=== PATIENT | female | born 1940 | race Caucasian/White ===

== ENCOUNTER 2018-01-30 00:53 | Inpatient (IN) ==
[2018-01-30] MEDS ORDERED: Piperacil/Tazo 3.375 GM Premix 50 ML IV.SIG ONE (01:27)
[2018-01-30] MEDS ORDERED: Azithromycin Inj 500 MG in Sodium Chlor 0.9% Inj 250 ML IV.SIG ONE (01:27)
[2018-01-30 01:35] LABS: Baso % (Auto) 0.3 % (0.0-2.0); Eos % (Auto) 0.2 % (0.0-4.0); Hematocrit 45.4 % (35.0-46.0); Hemoglobin 15.4 gm/dL (11.6-15.3); Lymph # (Auto) 0.7 th/mm3 (1.0-4.8); Lymph % (Auto) 6.6 % (9.0-44.0); Mean Corpuscular HGB Conc 33.9 % (32.0-36.0); Mean Corpuscular Hemoglobin 33.1 pg (27.0-34.0); Mean Corpuscular Volume 97.5 fL (80.0-100.0); Mean Platelet Volume 7.2 fL (7.0-11.0); Mono # (Auto) 0.9 th/mm3 (0.0-0.9); Mono % (Auto) 8.5 % (0.0-8.0); Neut # (Auto) 9.1 th/mm3 (1.8-7.7); Neut % (Auto) 84.4 % (16.0-70.0); Platelet Count 420 th/mm3 (150-450); Red Blood Count 4.65 mil/mm3 (4.00-5.30); Red Cell Distribution Width 12.7 % (11.6-17.2); White Blood Count 10.8 th/mm3 (4.0-11.0)
--- NOTE | 2018-01-30 01:42 | XR ---
EXAM DATE: 01/30/2018 1:30 AM EDT AGE/SEX: 77 years / Female INDICATIONS: Cough. CLINICAL DATA: This is the patient's initial encounter. Patient reports that signs and symptoms have been present for 1 day and indicates a pain score of 0/10. MEDICAL/SURGICAL HISTORY: Non-responsive. Non-responsive. COMPARISON: No prior exams available for comparison. FINDINGS: Right lower lobe consolidation. Left lung is clear. Cardiomegaly. Osseous structures are intact. CONCLUSION: Right lower lobe consolidation. Electronically signed by: Mychal Strauss MD 01/30/2018 1:41 AM EDT
[2018-01-30 01:49] LABS: Activated Partial Thrombo Time 29.8 sec (24.3-30.1); Prothrombin Time 10.4 sec (9.8-11.6)
[2018-01-30 01:50] LABS: D-Dimer 0.72 mg/L FEU (0.00-0.50)
--- NOTE | 2018-01-30 01:51 | ED ---
HPI General Chief complaint: Shortness of Breath/Dyspnea Stated complaint: cough Time Seen by Provider: 01/30/18 01:12 Source: patient and family Limitations: altered mental status (increased confusion, memory problems according to her daughter at the bedside.) History of Present Illness HPI narrative: The patient is a 77 year old female who presents to the [facility] emergency department with a history of cough, chest congestion, increased confusion that began approximately a week ago. The patient reports that her cough has become increasingly productive. She reports that it is productive of a green thick sputum. She denies having any known fevers. She denies having any shortness of breath, however on arrival she is noted to be tachycardic, tachypneic, with an O2 saturation of 83% on room air out in triage. She denies having any chest pain other than with coughing. She denies having any abdominal pain. On review of systems otherwise, the patient denies having any neck pain, vomiting, diarrhea, urinary symptoms, or other neurologic symptoms. Her daughter at the bedside reports that she has problems with her memory on a regular basis, however over the last couple of days she has been increasingly confused. Related Data Home Medications Medication Instructions Recorded Confirmed chlordiazepoxide HCl 10 mg PO BID 01/30/18 01/30/18 levothyroxine 75 mcg PO DAILY 01/30/18 01/30/18 Allergies Allergy/AdvReac Type Severity Reaction Status Date / Time cephalexin Allergy Severe Hives Unverified 01/30/18 02:04 ciprofloxacin Allergy Severe HOARSNESS Unverified 01/30/18 02:04 diphenhydramine Allergy Severe Burning Unverified 01/30/18 02:04 phenobarbital Allergy Severe Lethargy Unverified 01/30/18 02:04 Sulfa (Sulfonamide Allergy Severe Itching Unverified 01/30/18 02:04 Antibiotics) ANTIHISTAMINES Allergy Severe Hives Uncoded 01/30/18 02:04 Review of Systems ROS Unobtainable All other systems reviewed negative except as stated in HPI PMFSH Medical History Medical History Anxiety (Acute) History of hysterectomy (Acute) Hypothyroidism (Acute) Memory changes (Acute) Patient denies medical problems (Acute) Recurrent pneumonia (Acute) Family History Family History Other Family history unknown Social History Social History Substance History: No History of Abuse Smoking Status: Former smoker Smoking End Date: Quit smoking approximately 15-20 years ago. How Often Do You Have a Drink Containing Alcohol: Never Recent Travel in [facility] within the Last 8 Weeks: No Recent Out of Country Travel within the Last 8 Weeks: No Immunization History Tetanus Immunization: <5 Years Hx Influenza Vaccine This Season: No Exam Const General: cooperative, no acute distress and well developed Nutritional Appearance: well nourished Orientation: alert, awake and oriented x3 HENMT Head: normocephalic and atraumatic Nose: no nasal discharge and no epistaxis Mouth: moist mucous membranes Eyes Sclera: normal sclerae Pupils: PERRL Neck Neck: trachea midline and no JVD Resp Effort & Inspection: no use of accessory muscles Auscultation: rhonchi (Scattered rhonchi that clear with coughing bilaterally.) , no wheezes and other (Decreased breath sounds in bilateral lung bases worse on the right compared to the left, a frequent productive sounding cough on examination.) Cardio Rate: tachycardic (No pulse deficits to the extremities on simultaneous auscultation and palpation of her radial artery.) Rhythm: regular rhythm Heart Sounds: no murmurs GI Inspection: non-distended Palpation: soft, no hepatosplenomegaly and nontender Skin General: dry skin (warm) Neuro General: alert and awake Cranial Nerves: other Speech: speech normal Motor: no movement abnormalities noted Extrem General: normal to inspection, no clubbing, no cyanosis and no edema Psych Mood: congruent mood Affect: normal affect Judgment: judgment good Course Reevaluation(s) Reevaluation #1: The patient on reevaluation continued to saturate in the mid 90s on supplemental oxygen. The patient reported feeling improved. The workup was continued. The patient was instructed regarding the plan for admission. She was agreeable with this plan. Consultations Consultation #1: The patient's case including history, pertinent physical examination findings, and laboratory studies were discussed with Dr. Veliz. It was agreed that the patient would be admitted to the hospitalist service. Initial Documented Vital Signs Temperature 98.4 F 01/30/18 01:04 Pulse Rate 124 H 01/30/18 01:04 Respiratory Rate 42 H 01/30/18 01:04 Blood Pressure 132/79 01/30/18 01:04 Pulse Oximetry 83 L 01/30/18 01:04 Last Documented Vital Signs Temperature 98.4 F 01/30/18 01:04 Pulse Rate 100 H 01/30/18 04:09 Respiratory Rate 23 01/30/18 04:09 Blood Pressure 157/88 H 01/30/18 04:09 Pulse Oximetry 95 01/30/18 04:09 Medical Decision Making MDM Narrative Medical decision making narrative: During the course of the patient's emergency department visit, the patient's history, examination, and differential diagnosis were reviewed with the patient. The patient was placed on a aircraft sheet metal mechanic with oximetry and frequent blood pressure monitoring. The patient had IV access obtained and blood work sent for analysis. The diagnostic evaluation was started regarding the patient's hypoxemia, productive cough, and tachycardia. Blood cultures 2 were drawn, lactic acid was sent for analysis. The patient was initially provided Zosyn and Zithromax for broad-spectrum antibiotic coverage for suspected pneumonia, the patient was provided a DuoNeb 1. Diagnostic testing revealed a normal white count of 10.8, however a neutrophil predominance of 84.4, platelets 420, hemoglobin 15.4. PT PTT unremarkable, d- dimer was noted to be elevated at 0.72, therefore a CTA to rule out PE was ordered. Chemistries remarkable for a troponin I of less than 0.02, lactic acid within normal limits at 0.9, sodium 134, glucose 139, chloride 91, CO2 36.4 , albumin 2.8, magnesium 2.3. Chest x-ray revealed a right lower lobe infiltrate consistent with pneumonia, CTA to rule out PE showed no evidence of pulmonary embolism, scattered pulmonary infiltrates with dense consolidation in the right lower lobe, evidence of emphysema. The patient's results were discussed with the patient, including the plan of care. I explained that further testing and/ or monitoring is indicated based on the patient's history, examination, and/ or laboratory findings. Therefore, I recommended admission for additional evaluation. The patient expressed understanding and was agreeable with this plan. The patient was admitted to the hospital in guarded condition and sent to a bed under the care of the [facility] service. Differential Diagnosis Differential Diagnosis: Pneumonia, versus congestive heart failure, versus acute coronary syndrome, versus pulmonary embolism Medical Records Medical records reviewed: Yes I reviewed the patient's medical records. Lab Data Lab results reviewed: Yes I reviewed the patient's lab results. Result diagrams: 01/30/18 01:15 01/30/18 01:15 Lab Results 01/30/18 01/30/18 01/30/18 Range/Units 01:15 01:15 01:15 WBC 10.8 (4.0-11.0) th/mm3 RBC 4.65 (4.00-5.30) mil/mm3 Hgb 15.4 H (11.6-15.3) gm/dL Hct 45.4 (35.0-46.0) % MCV 97.5 (80.0-100.0) fL MCH 33.1 (27.0-34.0) pg MCHC 33.9 (32.0-36.0) % RDW 12.7 (11.6-17.2) % Plt Count 420 (150-450) th/mm3 MPV 7.2 (7.0-11.0) fL Neut % (Auto) 84.4 H (16.0-70.0) % Lymph % (Auto) 6.6 L (9.0-44.0) % [place] % (Auto) 8.5 H (0.0-8.0) % Eos % (Auto) 0.2 (0.0-4.0) % Baso % (Auto) 0.3 (0.0-2.0) % Neut # (Auto) 9.1 H (1.8-7.7) th/mm3 Lymph # (Auto) 0.7 L (1.0-4.8) th/mm3 [place] # (Auto) 0.9 (0.0-0.9) th/mm3 Eos # (Auto) 0.0 (0.0-0.4) th/mm3 Baso # (Auto) 0.0 (0.0-0.2) th/mm3 WBC Differential . Differential Comment Auto diff final PT 10.4 (9.8-11.6) sec INR 1.0 Ratio APTT 29.8 (24.3-30.1) sec D-Dimer Quant (PE/DVT) 0.72 H (0.00-0.50) mg/L FEU Sodium 134 L (136-145) meq/L Potassium 3.7 (3.5-5.1) meq/L Chloride 91 L (98-107) meq/L Carbon Dioxide 36.4 H (21.0-32.0) meq/L Anion Gap 7 (5-15) meq/L BUN 11 (7-18) mg/dL Creatinine 0.62 (0.50-1.00) mg/dL Estimated GFR Greater than 89 (>89) mL/min Random Glucose 139 H (74-106) mg/dL Lactic Acid (0.4-2.0) mmol/L Calcium 9.1 (8.5-10.1) mg/dL Magnesium 2.3 (1.5-2.5) mg/dL Total Bilirubin 0.4 (0.2-1.0) mg/dL AST 27 (15-37) U/L ALT 30 (10-53) U/L Alkaline Phosphatase 111 (45-117) U/L Total Creatine Kinase 80 (26-192) U/L Troponin I Less than 0.02 L (0.02-0.05) ng/mL B-Natriuretic Peptide (0-100) pg/mL Total Protein 7.6 (6.4-8.2) g/dL Albumin 2.8 L (3.4-5.0) g/dL 01/30/18 01/30/18 Range/Units 01:15 01:45 WBC (4.0-11.0) th/mm3 RBC (4.00-5.30) mil/mm3 Hgb (11.6-15.3) gm/dL Hct (35.0-46.0) % MCV (80.0-100.0) fL MCH (27.0-34.0) pg MCHC (32.0-36.0) % RDW (11.6-17.2) % Plt Count (150-450) th/mm3 MPV (7.0-11.0) fL Neut % (Auto) (16.0-70.0) % Lymph % (Auto) (9.0-44.0) % [place] % (Auto) (0.0-8.0) % Eos % (Auto) (0.0-4.0) % Baso % (Auto) (0.0-2.0) % Neut # (Auto) (1.8-7.7) th/mm3 Lymph # (Auto) (1.0-4.8) th/mm3 [place] # (Auto) (0.0-0.9) th/mm3 Eos # (Auto) (0.0-0.4) th/mm3 Baso # (Auto) (0.0-0.2) th/mm3 WBC Differential Differential Comment PT (9.8-11.6) sec INR Ratio APTT (24.3-30.1) sec D-Dimer Quant (PE/DVT) (0.00-0.50) mg/L FEU Sodium (136-145) meq/L Potassium (3.5-5.1) meq/L Chloride (98-107) meq/L Carbon Dioxide (21.0-32.0) meq/L Anion Gap (5-15) meq/L BUN (7-18) mg/dL Creatinine (0.50-1.00) mg/dL Estimated GFR (>89) mL/min Random Glucose (74-106) mg/dL Lactic Acid 0.9 (0.4-2.0) mmol/L Calcium (8.5-10.1) mg/dL Magnesium (1.5-2.5) mg/dL Total Bilirubin (0.2-1.0) mg/dL AST (15-37) U/L ALT (10-53) U/L Alkaline Phosphatase (45-117) U/L Total Creatine Kinase (26-192) U/L Troponin I (0.02-0.05) ng/mL B-Natriuretic Peptide 15 (0-100) pg/mL Total Protein (6.4-8.2) g/dL Albumin (3.4-5.0) g/dL Imaging Data Radiologist's impression: Chest X-Ray 01/30/18 01:14 CONCLUSION: Right lower lobe consolidation. Chest CTA 01/30/18 02:45 CONCLUSION: 1. No evidence for pulmonary embolism. 2. Scattered pulmonary infiltrates with dense consolidation in the right lower lobe. 3. Emphysema. ECG Data Attestation: I personally reviewed and interpreted this ECG as follows: Interpretation: The patient had an EKG done on arrival. The patient's EKG shows a sinus tachycardia rate of 111, QRS duration 93 ms, QTC 404 ms. Right ventricular hypertrophy is noted, an incomplete right bundle branch block is noted, nonspecific ST-T wave abnormalities are noted. T waves are inverted in V1, V2 No acute ST segment elevation is noted. Discharge Plan Discharge Disposition Patient Disposition: 30 Still Patient Discharge Details Diagnosis: Community acquired pneumonia, Hypoxemia Physicians Team ED Provider: Charissa Diaz Primary Care Provider: Alberto Warner Attending Provider: Ehsan Solomon Discharge Interventions Interventions: Vital Signs Last Done: 01/30/18 04:09 Status ED Status: Admitted Patient
[2018-01-30 02:00] LABS: Alanine Aminotransferase 30 U/L (10-53); Albumin 2.8 g/dL (3.4-5.0); Alkaline Phosphatase 111 U/L (45-117); Anion Gap 7 meq/L (5-15); Aspartate Aminotransferase 27 U/L (15-37); Blood Urea Nitrogen 11 mg/dL (7-18); Calcium 9.1 mg/dL (8.5-10.1); Carbon Dioxide 36.4 meq/L (21.0-32.0); Chloride 91 meq/L (98-107); Glomerular Filtration Rate Greater Than 89 mL/min (>89); Glucose,Random 139 mg/dL (74-106); Magnesium 2.3 mg/dL (1.5-2.5); Potassium 3.7 meq/L (3.5-5.1); Sodium 134 meq/L (136-145); Total Protein 7.6 g/dL (6.4-8.2)
[2018-01-30 02:01] LABS: Creatine Kinase 80 U/L (26-192)
--- NOTE | 2018-01-30 03:22 | CT ---
EXAM DATE: 01/30/2018 3:14 AM EDT AGE/SEX: 77 years / Female INDICATIONS: Shortness of breath with elevated D-Dimer. CLINICAL DATA: This is the patient's initial encounter. Patient reports that signs and symptoms have been present for 3 days and indicates a pain score of 0/10. MEDICAL/SURGICAL HISTORY: None. Hysterectomy. RADIATION DOSE: 9.82 CTDI (mGy) COMPARISON: [facility], CHEST 1V SINGLE AP, 01/30/2018. . TECHNIQUE: Volumetric scanning was performed using a multi-row detector CT scanner during bolus infu jaswinder of 70 ml Omnipaque 350 (iohexol) nonionic water-soluble contrast as a single exam dose. The laurel a was post processed with a variety of visualization algorithms including full volume maximum intensi ty projection and sliding thin slab reformation. Using automated exposure control and adjustment of the mA and/or kV according to patient size, radiation dose was kept as low as reasonably achievable t o obtain optimal diagnostic quality images. DICOM format image data is available electronically for review and comparison. FINDINGS: There is mild parenchymal consolidation in the lingula identified. There are severe emphysematous nay nges noted. There is mild bronchiectasis and peripheral tree-in-bud infiltrate in the right upper lob e with peribronchial thickening. There is bronchiectasis, peribronchial thickening, dense consolidati on in the right lower lobe corresponding to the plain radiographic findings. There are areas of mucou s plugging seen. There is no evidence for pulmonary embolism. Review of bone windows demonstrate a mo derate T12 compression fracture, which is nonacute. CONCLUSION: 1. No evidence for pulmonary embolism. 2. Scattered pulmonary infiltrates with dense consolidation in the right lower lobe. 3. Emphysema. Electronically signed by: Mychal Strauss MD 01/30/2018 3:21 AM EDT
[2018-01-30] MEDS ORDERED: Acetaminophen 325 MG Tablet PO PRN (03:33)
[2018-01-30] MEDS ORDERED: Temazepam 15 MG Capsule PO PRN (03:33)
[2018-01-30] MEDS ORDERED: Bisacodyl 10 MG Supp RECTAL PRN (03:33)
--- NOTE | 2018-01-30 03:39 | P.HP ---
History of Present Illness Service: [facility] Primary Care Physician: Alberto Warner MD History of Present Illness: 77-year-old female with a past medical history significant for dementia and hypothyroidism presents to the emergency department for evaluation of active cough, increased sputum production and confusion that began approximately 1 week ago. The patient is an extremely poor historian and her daughter who is bedside provides most of the history. She reports that the patient has had a cough productive of thick green sputum. She does not know if patient had any fevers and the patient denies any fevers or shortness of breath. The patient was hypoxic on arrival to the emergency department however, with an oxygen saturation of 83% on room air. The patient denies any chest pain. No abdominal pain. No nausea/vomiting/diarrhea. No lateralizing signs/symptoms. Inpatient Certification: I certify that the inpatient services were ordered in accordance with Medicare regulations governing the order. This includes certification that hospital inpatient services are reasonable and necessary and in the case of services not specified as inpatient-only under 42 CFR 419.22(n), that they are appropriately provided as inpatient services in accordance to with the 2-midnight benchmark under 43 CFR 412.3(e) Review of Systems All other systems reviewed negative except as stated in HPI PMFSH - History History Provided By: Patient - Medical History Medical History: Medical History (Last Updated 01/30/18 @ 02:48 by Charissa Diaz MD) Anxiety History of hysterectomy Hypothyroidism Memory changes Patient denies medical problems Recurrent pneumonia - Family History Family History: Family History (Last Updated 01/30/18 @ 03:29 by Edna Veliz MD) Other Family history unknown - Tobacco History Smoking Status: Former smoker Smoking End Date: Quit smoking approximately 15-20 years ago. - Alcohol History How Often Do You Have a Drink Containing Alcohol: Never - Substance Use History Substance History: No History of Abuse - Travel History Recent Travel in the [place] Within the Last 8 Weeks: No Recent Travel Out of the Country Within the Last 8 Weeks: No - Immunization History Tetanus Immunization: <5 Years Hx Influenza Vaccine This Season: No Medications and Allergies Active Medications: Active Medications Sodium Chloride (Ns Flush) 2 ml IV.FLUSH UNSCH PRN PRN Reason: FLUSH AFTER USING IV ACCESS Allergies Allergy/AdvReac Type Severity Reaction Status Date / Time cephalexin Allergy Severe Hives Unverified 01/30/18 02:04 ciprofloxacin Allergy Severe HOARSNESS Unverified 01/30/18 02:04 diphenhydramine Allergy Severe Burning Unverified 01/30/18 02:04 phenobarbital Allergy Severe Lethargy Unverified 01/30/18 02:04 Sulfa (Sulfonamide Allergy Severe Itching Unverified 01/30/18 02:04 Antibiotics) ANTIHISTAMINES Allergy Severe Hives Uncoded 01/30/18 02:04 Home Medications Medication Instructions Recorded Confirmed Type chlordiazepoxide HCl 10 mg PO BID 01/30/18 01/30/18 History levothyroxine 75 mcg PO DAILY 01/30/18 01/30/18 History Exam Vital signs: Vital Signs 01/30/18 01:04 01/30/18 01:13 01/30/18 01:14 Temperature 98.4 F Pulse Rate 124 H 111 H Respiratory Rate 42 H 42 H Blood Pressure 132/79 133/96 H Pulse Oximetry 83 L 95 97 01/30/18 01:16 01/30/18 01:36 01/30/18 02:00 Temperature Pulse Rate 111 H 98 H Respiratory Rate 28 H 29 H Blood Pressure 133/96 H Pulse Oximetry 97 97 Intake & Output 01/29/18 01/29/18 01/30/18 06:59 18:59 06:59 Weight 56.699 kg Narrative: Gen.: No acute distress Head: Normocephalic. Atraumatic. EENT: Pupils equal round and reactive to light. Nose without drainage. Airway intact. Throat without injection. Cardiovascular: Regular rate and rhythm. No murmurs, rubs or gallops. Respiratory: Lungs clear to auscultation bilaterally. No wheezes. Scattered rhonchi. Abdomen: Soft, nontender, nondistended. No peritoneal signs. Musculoskeletal: No gross deformities. No edema. Skin: No obvious rashes or erythema. Neuro: Sensory and motor grossly intact. Cranial nerves II through XII grossly intact. Results - Labs CBC & Chem 7: 01/30/18 01:15 01/30/18 01:15 Labs: Laboratory Results - last 24 hr 01/30/18 01/30/18 01/30/18 01:15 01:15 01:15 WBC 10.8 RBC 4.65 Hgb 15.4 H Hct 45.4 MCV 97.5 MCH 33.1 MCHC 33.9 RDW 12.7 Plt Count 420 MPV 7.2 Neut % (Auto) 84.4 H Lymph % (Auto) 6.6 L [place] % (Auto) 8.5 H Eos % (Auto) 0.2 Baso % (Auto) 0.3 Neut # (Auto) 9.1 H Lymph # (Auto) 0.7 L [place] # (Auto) 0.9 Eos # (Auto) 0.0 Baso # (Auto) 0.0 WBC Differential . Differential Comment Auto diff final PT 10.4 INR 1.0 APTT 29.8 D-Dimer Quant (PE/DVT) 0.72 H Sodium 134 L Potassium 3.7 Chloride 91 L Carbon Dioxide 36.4 H Anion Gap 7 BUN 11 Creatinine 0.62 Estimated GFR Greater than 89 Random Glucose 139 H Lactic Acid Calcium 9.1 Magnesium 2.3 Total Bilirubin 0.4 AST 27 ALT 30 Alkaline Phosphatase 111 Total Creatine Kinase 80 Troponin I Less than 0.02 L B-Natriuretic Peptide Total Protein 7.6 Albumin 2.8 L 01/30/18 01/30/18 01:15 01:45 WBC RBC Hgb Hct MCV MCH MCHC RDW Plt Count MPV Neut % (Auto) Lymph % (Auto) [place] % (Auto) Eos % (Auto) Baso % (Auto) Neut # (Auto) Lymph # (Auto) [place] # (Auto) Eos # (Auto) Baso # (Auto) WBC Differential Differential Comment PT INR APTT D-Dimer Quant (PE/DVT) Sodium Potassium Chloride Carbon Dioxide Anion Gap BUN Creatinine Estimated GFR Random Glucose Lactic Acid 0.9 Calcium Magnesium Total Bilirubin AST ALT Alkaline Phosphatase Total Creatine Kinase Troponin I B-Natriuretic Peptide 15 Total Protein Albumin - Imaging Impressions Chest X-Ray 01/30/18 01:14 CONCLUSION: Right lower lobe consolidation. Chest CTA 01/30/18 02:45 CONCLUSION: 1. No evidence for pulmonary embolism. 2. Scattered pulmonary infiltrates with dense consolidation in the right lower lobe. 3. Emphysema. Caprini VTE Risk Assessment Caprini VTE Risk Assessment: Moderate/High Risk (score >= 2) Caprini Risk Assessment Model: Point Value = 1 Point Value = 2 Point Value = 3 Point Value = 5 Age 41-60 Minor surgery BMI > 25 kg/m2 Swollen legs Varicose veins or History of unexplained or recurrent spontaneous Oral contraceptives or hormone replacement Sepsis (< 1 month) Serious lung disease, including pneumonia (< 1 month) Abnormal pulmonary function Acute myocardial infarction Congestive heart failure (< 1 month) History of inflammatory bowel disease Medical patient at bed rest Age 61-74 Arthroscopic surgery Major open surgery (> 45 min) Laparoscopic surgery (> 45 min) Malignancy Confined to bed (> 72 hours) Immobilizing plaster cast Central venous access Age >= 75 History of VTE Family history of VTE Factor V Leiden Prothrombin [id number] Lupus anticoagulant Anticardiolipin antibodies Elevated serum homocysteine Heparin-induced thrombocytopenia Other congenital or acquired thrombophilia Stroke (< 1 month) Elective arthroplasty Hip, pelvis, or leg fracture Acute spinal cord injury (< 1 month) Prophylaxis Regimen: Total Risk Factor Score Risk Level Prophylaxis Regimen 0-1 Low Early ambulation 2 Moderate Order ONE of the following: *Sequential Compression Device (SCD) *Heparin 5000 units SQ BID 3-4 Higher Order ONE of the following medications: *Heparin 5000 units SQ TID *Enoxaparin/Lovenox 40 mg SQ daily (WT < 150 kg, CrCl > 30 mL/min) *Enoxaparin/Lovenox 30 mg SQ daily (WT < 150 kg, CrCl > 10-29 mL/min) *Enoxaparin/Lovenox 30 mg SQ BID (WT < 150 kg, CrCl > 30 mL/min) AND/OR *Sequential Compression Device (SCD) 5 or more Highest Order ONE of the following medications: *Heparin 5000 units SQ TID (Preferred with Epidurals) *Enoxaparin/Lovenox 40 mg SQ daily (WT < 150 kg, CrCl > 30 mL/min) *Enoxaparin/Lovenox 30 mg SQ daily (WT < 150 kg, CrCl > 10-29 mL/min) *Enoxaparin/Lovenox 30 mg SQ BID (WT < 150 kg, CrCl > 30 mL/min) AND *Sequential Compression Device (SCD) Assessment and Plan - Plan Assessment/plan: 1. Pneumonia CT chest significant for scattered pulmonary infiltrates with dense consolidation in the right lower lobe Given patient's allergy profile, azithromycin and Zosyn Duo nebs Supplemental oxygen as needed -wean as tolerated 2. Hypothyroidism Continue home Synthroid 3. Anxiety Continue home Librium FEN Regular diet Electrolytes: Monitor and replete as needed Heparin
[2018-01-30] MEDS: Heparin - SQ 10,000 UNITS/ML Vial SQ SCH ×2 (04:30→14:45)
[2018-01-30] MEDS: Levothyroxine 75 MCG Tablet PO SCH (06:44)
[2018-01-30] MEDS: Piperacil/Tazo 4.5 GM Premix 4.5 GM/100 ML BAG IV.SIG SCH ×3 (08:30→21:12)
[2018-01-30] MEDS: Senna/Docusate Sodium 8.6/50 MG Tablet PO SCH ×2 (08:49→21:12)
--- NOTE | 2018-01-30 23:18 | ECG ---
Date Performed: 01/30/2018 Time Performed: 01:14:11 PTAGE: 77 years EKG: SINUS TACHYCARDIA POSSIBLE LEFT ATRIAL ENLARGEMENT INCOMPLETE RIGHT BUNDLE BRANCH BLOCK RIG HT VENTRICULAR HYPERTROPHY POSSIBLE ANTERIOR MYOCARDIAL INFARCTION INFERIOR MYOCARDIAL INFARCTION ABN ORMAL ECG Compared to PREVIOUS TRACING , rate has increased DOCTOR: Jay De Guzman Interpretating Date/Time 01/30/2018 23:16:50
[2018-01-31] MEDS ORDERED: Azithromycin Inj 500 MG in Sodium Chlor 0.9% Inj 250 ML IV.SIG ONE (03:32)
[2018-01-31] MEDS: Piperacil/Tazo 4.5 GM Premix 4.5 GM/100 ML BAG IV.SIG SCH (03:43)
[2018-01-31] MEDS: Heparin - SQ 10,000 UNITS/ML Vial SQ SCH ×2 (03:43→15:37)
[2018-01-31] MEDS: Levothyroxine 75 MCG Tablet PO SCH (06:19)
[2018-01-31 06:37] LABS: Baso % (Auto) 0.4 % (0.0-2.0); Eos # (Auto) 0.1 th/mm3 (0.0-0.4); Eos % (Auto) 1.1 % (0.0-4.0); Hematocrit 35.5 % (35.0-46.0); Hemoglobin 12.3 gm/dL (11.6-15.3); Lymph # (Auto) 0.6 th/mm3 (1.0-4.8); Lymph % (Auto) 5.6 % (9.0-44.0); Mean Corpuscular HGB Conc 34.6 % (32.0-36.0); Mean Corpuscular Volume 98.4 fL (80.0-100.0); Neut # (Auto) 8.3 th/mm3 (1.8-7.7); Neut % (Auto) 82.9 % (16.0-70.0); Platelet Count 340 th/mm3 (150-450); Red Blood Count 3.61 mil/mm3 (4.00-5.30)
[2018-01-31 07:17] LABS: Anion Gap 4 meq/L (5-15); Blood Urea Nitrogen 12 mg/dL (7-18); Calcium 8.1 mg/dL (8.5-10.1); Chloride 95 meq/L (98-107); Glomerular Filtration Rate Greater Than 89 mL/min (>89); Glucose,Random 105 mg/dL (74-106); Sodium 136 meq/L (136-145)
[2018-01-31 07:36] LABS: Potassium 2.9 meq/L (3.5-5.1)
[2018-01-31] MEDS: Senna/Docusate Sodium 8.6/50 MG Tablet PO SCH ×2 (09:36→20:23)
--- NOTE | 2018-01-31 10:26 | P.PNIM ---
Subjective Interval history: Respiratory status is stable and patient's signs of infection are improving. Potassium level is low at 2.9 today. Additionally she has some symptoms of confusion overnight. Physical Exam Vital signs: Vital Signs 01/30/18 11:00 01/30/18 12:32 01/30/18 13:00 Temperature 98.0 F Pulse Rate 92 H 102 H 97 H Respiratory Rate 18 Blood Pressure 132/61 Pulse Oximetry 94 L 01/30/18 14:00 01/30/18 14:51 01/30/18 16:00 Temperature 98.2 F Pulse Rate 110 H 99 H 111 H Respiratory Rate 18 Blood Pressure 128/80 Pulse Oximetry 92 L 01/30/18 16:40 01/30/18 17:00 01/30/18 17:35 Temperature Pulse Rate 98 H 96 H Respiratory Rate Blood Pressure Pulse Oximetry 92 L 01/30/18 19:00 01/30/18 23:00 01/31/18 00:00 Temperature 98.9 F 98.4 F Pulse Rate 110 H 93 H 93 H Respiratory Rate 22 22 22 Blood Pressure 135/81 127/63 Pulse Oximetry 91 L 95 95 01/31/18 03:00 01/31/18 09:53 Temperature 97.7 F Pulse Rate 86 Respiratory Rate 22 Blood Pressure 108/58 L Pulse Oximetry 93 L 96 Intake & Output 01/30/18 01/31/18 01/31/18 18:59 06:59 18:59 Intake Total 860 / 860 690 / 690 Balance 860 / 860 690 / 690 Weight 53 kg Intake: IV 500 / 500 450 / 450 Azithromycin Inj 500 MG In NS 250 / 250 250 / 250 Inj 250 ML @ 250 mls/hr IV.SIG ONCE ONE Rx#:[id number] Zosyn 3.375 GM Premix 50 ML @ 50 / 50 100 mls/hr IV.SIG ONCE ONE Rx#: [id number] Zosyn 4.5 GM Premix 4.5 gm In 200 / 200 200 / 200 100 ml @ 200 mls/hr IV.SIG Q6H REBEKAH Rx#:[id number] Oral 360 / 360 240 / 240 Other: # Voids 3 1 Date of Last Bowel Movement 01/29/18 Narrative: GENERAL: NAD, A&Ox2 HEAD: Normocephalic. NECK: Supple, trachea midline. No lymphadenopathy. EYES: No scleral icterus. No injection or drainage. CARDIOVASCULAR: Regular rate and rhythm without murmurs, gallops, or rubs. RESPIRATORY: Breath sounds equal bilaterally. No accessory muscle use. Crackles at left base. GASTROINTESTINAL: Abdomen soft, non-tender, nondistended. MUSCULOSKELETAL: No cyanosis, or edema. SKIN: Warm and dry. NEURO: No focal neurological deficits. Results - Labs CBC & Chem 7: 01/31/18 06:11 01/31/18 06:11 Laboratory Results - last 24 hr 01/31/18 01/31/18 06:11 06:11 WBC 10.0 RBC 3.61 L Hgb 12.3 D Hct 35.5 MCV 98.4 MCH 34.0 MCHC 34.6 RDW 13.0 Plt Count 340 MPV 7.0 Neut % (Auto) 82.9 H Lymph % (Auto) 5.6 L [place] % (Auto) 10.0 H Eos % (Auto) 1.1 Baso % (Auto) 0.4 Neut # (Auto) 8.3 H Lymph # (Auto) 0.6 L [place] # (Auto) 1.0 H Eos # (Auto) 0.1 Baso # (Auto) 0.0 WBC Differential . Differential Comment Auto diff final Sodium 136 Potassium 2.9 L* D Chloride 95 L Carbon Dioxide 37.0 H Anion Gap 4 L BUN 12 Creatinine 0.49 L Estimated GFR Greater than 89 Random Glucose 105 Calcium 8.1 L D Assessment and Plan - Plan 77-year-old female admitted secondary to right lower lobe pneumonia Community-acquired pneumonia Right lower lobe pneumonia Continue azithromycin Continue Augmentin Oxygen supplementation as needed Duo nebs as needed Encephalopathy Likely infection related Continue supportive care Hypokalemia Supplementations provided Monitor closely for resolution Hypothyroidism Continue home Synthroid Anxiety Continue home Librium DVT prophylaxis Heparin
[2018-01-31] MEDS: Amoxicillin/Clavulanate 875/125 MG Tablet PO SCH ×2 (11:41→20:23)
[2018-01-31] MEDS: Azithromycin 250 MG Tablet PO SCH (11:43)
[2018-02-01] MEDS: Heparin - SQ 10,000 UNITS/ML Vial SQ SCH ×2 (03:31→15:39)
[2018-02-01] MEDS: Levothyroxine 75 MCG Tablet PO SCH (05:07)
[2018-02-01 09:40] LABS: Baso # (Auto) 0.1 th/mm3 (0.0-0.2); Baso % (Auto) 0.9 % (0.0-2.0); Eos # (Auto) 0.1 th/mm3 (0.0-0.4); Eos % (Auto) 2.3 % (0.0-4.0); Hemoglobin 14.9 gm/dL (11.6-15.3); Lymph # (Auto) 0.6 th/mm3 (1.0-4.8); Lymph % (Auto) 9.4 % (9.0-44.0); Mean Corpuscular HGB Conc 35.4 % (32.0-36.0); Mean Corpuscular Volume 98.9 fL (80.0-100.0); Mean Platelet Volume 7.7 fL (7.0-11.0); Mono # (Auto) 0.6 th/mm3 (0.0-0.9); Mono % (Auto) 8.8 % (0.0-8.0); Neut % (Auto) 78.6 % (16.0-70.0); Platelet Count 391 th/mm3 (150-450); Red Blood Count 4.25 mil/mm3 (4.00-5.30); Red Cell Distribution Width 12.8 % (11.6-17.2); White Blood Count 6.4 th/mm3 (4.0-11.0)
[2018-02-01] MEDS: Senna/Docusate Sodium 8.6/50 MG Tablet PO SCH ×2 (10:03→21:31)
[2018-02-01] MEDS: Azithromycin 250 MG Tablet PO SCH (10:03)
[2018-02-01] MEDS: Amoxicillin/Clavulanate 875/125 MG Tablet PO SCH ×2 (10:03→21:31)
[2018-02-01 10:07] LABS: Alanine Aminotransferase 38 U/L (10-53); Albumin 2.7 g/dL (3.4-5.0); Anion Gap 10 meq/L (5-15); Aspartate Aminotransferase 39 U/L (15-37); Calcium 9.4 mg/dL (8.5-10.1); Chloride 91 meq/L (98-107); Glomerular Filtration Rate Greater Than 89 mL/min (>89); Glucose,Random 101 mg/dL (74-106); Sodium 133 meq/L (136-145)
[2018-02-01 10:14] LABS: Alkaline Phosphatase 121 U/L (45-117); Blood Urea Nitrogen 9 mg/dL (7-18); Total Protein 7.6 g/dL (6.4-8.2)
[2018-02-01] MEDS ORDERED: Potassium Chloride 25 MEQ Effervescent Tablet PO ONE (13:06)
--- NOTE | 2018-02-01 13:09 | P.PNIM ---
Subjective Interval history: Encephalopathy remains. Daughter is at bedside and confirms that her mother's mental status is worse than baseline. Potassium level is low at 3.0 this morning. Physical Exam Vital signs: Vital Signs 01/31/18 15:00 01/31/18 19:00 02/01/18 00:58 Temperature 98 F 97.3 F L 98.0 F Pulse Rate 81 89 85 Respiratory Rate 16 16 Blood Pressure 123/69 128/77 134/71 Pulse Oximetry 90 L 94 L 90 L 02/01/18 04:00 02/01/18 08:00 02/01/18 12:00 Temperature 97.8 F 97.2 F L 97.6 F Pulse Rate 85 88 81 Respiratory Rate 16 18 17 Blood Pressure 117/69 126/67 129/70 Pulse Oximetry 92 L 92 L 90 L Intake & Output 01/31/18 02/01/18 02/01/18 18:59 06:59 18:59 Intake Total 750 / 750 240 / 240 Output Total 800 / 800 Balance -50 / -50 240 / 240 Weight 53 kg Intake: Oral 750 / 750 240 / 240 Output: Urine 800 / 800 Other: # Voids 1 Date of Last Bowel Movement 01/31/18 # Bowel Movements 0 Narrative: GENERAL: NAD, A&Ox2 HEAD: Normocephalic. NECK: Supple, trachea midline. No lymphadenopathy. EYES: No scleral icterus. No injection or drainage. CARDIOVASCULAR: Regular rate and rhythm without murmurs, gallops, or rubs. RESPIRATORY: Breath sounds equal bilaterally. No accessory muscle use. Crackles at left base. GASTROINTESTINAL: Abdomen soft, non-tender, nondistended. MUSCULOSKELETAL: No cyanosis, or edema. SKIN: Warm and dry. NEURO: No focal neurological deficits. Results - Labs CBC & Chem 7: 02/01/18 08:24 02/01/18 08:24 Laboratory Results - last 24 hr 01/31/18 02/01/18 02/01/18 13:53 08:24 08:24 WBC 6.4 RBC 4.25 Hgb 14.9 D Hct 42.0 MCV 98.9 MCH 35.0 H MCHC 35.4 RDW 12.8 Plt Count 391 MPV 7.7 Neut % (Auto) 78.6 H Lymph % (Auto) 9.4 [place] % (Auto) 8.8 H Eos % (Auto) 2.3 Baso % (Auto) 0.9 Neut # (Auto) 5.0 Lymph # (Auto) 0.6 L [place] # (Auto) 0.6 Eos # (Auto) 0.1 Baso # (Auto) 0.1 WBC Differential . Differential Comment Auto diff final Sodium 133 L Potassium 3.1 L 3.0 L Chloride 91 L Carbon Dioxide 32.0 Anion Gap 10 BUN 9 Creatinine 0.53 Estimated GFR Greater than 89 Random Glucose 101 Calcium 9.4 D Total Bilirubin 0.4 AST 39 H ALT 38 Alkaline Phosphatase 121 H Total Protein 7.6 Albumin 2.7 L Microbiology 01/30/18 01:40 Blood - Peripheral Aerobic Blood Culture - Preliminary No growth in 2 days 01/30/18 01:40 Blood - Peripheral Anaerobic Blood Culture - Preliminary No growth in 2 days 01/30/18 01:40 Blood - Peripheral Aerobic Blood Culture - Preliminary No growth in 2 days 01/30/18 01:40 Blood - Peripheral Anaerobic Blood Culture - Preliminary No growth in 2 days Assessment and Plan - Plan 77-year-old female admitted secondary to right lower lobe pneumonia No significant improvement in encephalopathy. The patient's hypokalemia remains and replacements are provided. Additionally she was started on a twice daily schedule supplementation. Community-acquired pneumonia Right lower lobe pneumonia Continue azithromycin Continue Augmentin Oxygen supplementation as needed Duo nebs as needed Metabolic encephalopathy Likely infection related Not yet improved continue supportive care Continue to treat infection Hypokalemia Supplementations provided Monitor closely for resolution Hypothyroidism Continue home Synthroid Anxiety Continue home Librium DVT prophylaxis Heparin
[2018-02-02] MEDS: Heparin - SQ 10,000 UNITS/ML Vial SQ SCH (03:36)
[2018-02-02] MEDS: Levothyroxine 75 MCG Tablet PO SCH (06:27)
[2018-02-02 06:38] LABS: Alanine Aminotransferase 38 U/L (10-53); Albumin 2.4 g/dL (3.4-5.0); Anion Gap 7 meq/L (5-15); Aspartate Aminotransferase 30 U/L (15-37); Blood Urea Nitrogen 8 mg/dL (7-18); Calcium 8.8 mg/dL (8.5-10.1); Carbon Dioxide 31.8 meq/L (21.0-32.0); Chloride 97 meq/L (98-107); Glomerular Filtration Rate Greater Than 89 mL/min (>89); Glucose,Random 90 mg/dL (74-106); Potassium 3.6 meq/L (3.5-5.1); Sodium 136 meq/L (136-145)
[2018-02-02 06:40] LABS: Alkaline Phosphatase 88 U/L (45-117); Total Protein 6.6 g/dL (6.4-8.2)
[2018-02-02] MEDS: Senna/Docusate Sodium 8.6/50 MG Tablet PO SCH (08:48)
[2018-02-02] MEDS: Azithromycin 250 MG Tablet PO SCH (08:49)
[2018-02-02] MEDS: Amoxicillin/Clavulanate 875/125 MG Tablet PO SCH (08:49)
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
--- NOTE | 2018-02-02 15:38 | P.DCO ---
- Physical Therapy Order: Evaluate and treat, Improve ambulation, Strength and gait training - Home Health Nursing Order: Medical education, Signs/symptoms of disease process, Nursing assessment with vital signs - Certification I have seen patient Krystina Saldivar on 02/02/18. My clinical findings support the need for the requested home health care services because: Limited mobility due to disease progression, Deconditioned with increased weakness, Limited ability to care for self, Need for psychosocial assistance, Impaired cognition/judgement, Infection with risk of complications I certify that my clinical findings support that this patient is homebound because: Impaired cognitive ability/safety, Unsteady gait/balance, Unsafe to leave home unassisted, Need for psychosocial assistance, Unable to use public transportation
== END 2018-02-02 17:02 | disposition home health service (06) ==
LOC: NEPC 00:53 → NEDA 02:53 → NEDH 05:41 → HCPC 09:30 → NEDH 09:30 → N04 01-31 22:27
PROVIDERS: ADMIT Hospitalist; ATTEND Hospitalist